=== PATIENT | male | born 1950 | race Caucasian/White ===

== ENCOUNTER 2018-03-16 12:18 | Day surgery (SDC) | payer MEDICARE, OTHER ==
[~2018-03-16] VITALS: Ht 175.3 cm; Wt 76.7 kg
[~2018-03-16 12:18] MED LIST: DEXTROAMPHETAMI10 M1 PO; DIVALPROEX SOD250 M1 PO; LISINOPRIL40 MG PO; OMEPRAZOLE20 MG PO; PERCOCET 7.5-31 EACH PO; ZOFRAN ODT8 MG PO
[2018-03-16] MEDS ORDERED: BIOTIN5000 MC1 SL (12:55)
[2018-03-16] MEDS ORDERED: CELEBREX200 MG PO (12:56)
[2018-03-16] MEDS ORDERED: MINOCIN100 MG PO (12:56)
[2018-03-16] MEDS ORDERED: CLONAZEPAM1 MG PO (12:56)
[2018-03-16] MEDS ORDERED: OSTEO BI-FLEX1 EAC2 PO (12:57)
[2018-03-16] MEDS ORDERED: PAPAYA1 EAC1 PO (12:57)
[2018-03-16] MEDS ORDERED: DAILY MULTIPLE1 EACH PO (12:57)
[2018-03-16] MEDS ORDERED: VITAMIN D-32000 UNIT PO (12:59)
[2018-03-16] MEDS ORDERED: VITAMIN B-12500 MC2 PO (12:59)
--- NOTE | 2018-03-16 14:00 | NUR ---
03/16/18 1400 Rebecca Serrano 1348 PATIENT ARRIVES TO PACU AWAKE, BUT SLIGHTLY DROWSY. RESP EVEN AND UNLABORED. NC AT 3 LITERS. DENIES PAIN OR NAUSEA. 1350 OXYGEN TURNED OFF. 1355 PATIENT SITTING UP DRINKING OJ, PASSING GAS.
--- NOTE | 2018-03-18 12:42 | OR ---
[facility] [address] [place], [place] [address] Signed DATE OF OPERATION: 03/16/2018 SURGEON: Johnathan Muhammad MD PREOPERATIVE DIAGNOSES: 1. History of villoglandular polyp of the right colon in 2016. 2. Diarrhea, possibly postcholecystectomy related diarrhea. POSTOPERATIVE DIAGNOSES: Polyps x2 (right colon and splenic flexure). PROCEDURE: Total colonoscopy to cecum with cold morcellation polypectomy x2. ANESTHESIA: Intravenous sedation, fentanyl 100 mcg and Versed 6 mg. INDICATION: A 67-year-old white man who is a patient of Dr. Horne and known to me from the past having undergone cholecystectomy in 2016 as well as colonoscopy at that time showing a villoglandular polyp of the right colon. Surveillance colonoscopy was recommended in addition to the fact he has significant diarrhea from time to time. It is my clinical impression that his diarrhea is probably related to cholecystectomy. A plan for use of Questran is anticipated following this evaluation. The risks of bleeding, infection, and perforation related to colonoscopy were reviewed in detail. He understands and wished to proceed. FINDINGS: The prep was excellent. Complete colonoscopy was undertaken to the cecum. There was no evidence of colitis. He had two polyps, both of them small, one in the mid ascending colon and the other at the splenic flexure. Both were excised completely. DESCRIPTION OF PROCEDURE: The patient was brought to the endoscopy suite and placed in the lateral decubitus position, given intravenous sedation to the point of slurred speech and nystagmus. Digital rectal examination was normal. The Olympus video colonoscope was passed in the rectum and manipulated throughout the colon ultimately intubating the cecum itself. The ileocecal valve and appendiceal orifice were normal. The scope was withdrawn a short distance and a sessile polyp looking primarily hyperplastic was noted. This was excised completely with cold morcellation technique. In this area, but not directly at this Electronically Signed By: JOHNATHAN MUHAMMAD MD 03/18/18 1242 PATIENT NAME: MAGDY HOWE OPERATIVE REPORT DATE OF : 50 REPORT #: [id number] PHYSICIAN: JOHNATHAN MUHAMMAD MD PCP: BELEN HORNE MD REPORT IS CONFIDENTIAL AND NOT TO BE RELEASED WITHOUT AUTHORIZATION [facility] [address] [place], [place] [address] Signed area was a faint hint of endoscopic tattoo dye though I cannot be for certain that it was there. Further withdrawal of the scope was undertaken and in the region of the splenic flexure and the left colon, another small polyp was noted. This was excised completely with cold morcellation technique as well. Further withdrawal of the scope showed no sign of diverticulosis, colitis, cancer, or other problem. Retroflexed view was normal as well. The scope was removed. The patient was taken to the recovery room in good condition. CONCLUDING DIAGNOSIS: Polyps x2. PLAN: We will see what the pathology report shows. Given the two polyps, would recommend repeat colonoscopy in 3 years or sooner if clinically indicated. He will initiate his Questran for presumed postcholecystectomy diarrhea (choleretic diarrhea). He will let me know if there are problems in the meantime. Johnathan Muhammad MD JM/MODL /[id number] cc: Belen Horne MD Copies: BELEN HORNE MD ~ Electronically Signed By: JOHNATHAN MUHAMMAD MD 03/18/18 1242 PATIENT NAME: MAGDY HOWE OPERATIVE REPORT DATE OF : 50 REPORT #: [id number] PHYSICIAN: JOHNATHAN MUHAMMAD MD PCP: BELEN HORNE MD REPORT IS CONFIDENTIAL AND NOT TO BE RELEASED WITHOUT AUTHORIZATION
== END 2018-03-16 14:20 | disposition home or self-care (01) ==
LOC: OPS 12:18 → DS 13:00 → OPS 14:20
PROVIDERS: Surgery
PROC: 0DBL8ZX Excision of Transverse Colon, Via Natural or Artificial Opening Endoscopic, Diagnostic (ICD-10-PCS; 2018-03-16)
PROC: 0DBF8ZX Excision of Right Large Intestine, Via Natural or Artificial Opening Endoscopic, Diagnostic (ICD-10-PCS; principal; 2018-03-16 13:00)
DX: D12.3 Benign neoplasm of transverse colon (principal); K63.5 Polyp of colon; I10 Essential (primary) hypertension; G40.909 Epilepsy, unspecified, not intractable, without status epilepticus; K91.5 Postcholecystectomy syndrome; Z86.010 Personal history of colon polyps; Z98.890 Other specified postprocedural states
CPT/HCPCS: 88305; 99153; G0500; J2250; J3010; J7120

== ENCOUNTER 2021-05-07 07:00 | Day surgery (SDC) | payer MEDICARE, OTHER ==
[~2021-05-07] VITALS: Ht 175.3 cm; Wt 74.5 kg
[~2021-05-07 07:00] MED LIST changes: +BIOTIN5000 MC1 SL; +CELEBREX200 MG PO; +CLONAZEPAM1 MG PO; +DAILY MULTIPLE1 EACH PO; +MELOXICAM15 MG PO; +MINOCIN100 MG PO; +OSTEO BI-FLEX1 EAC2 PO; +PAPAYA1 EAC1 PO; +VITAMIN B-12500 MC2 PO; +VITAMIN B-12500 MCG PO; +VITAMIN D-32000 UNIT PO
--- NOTE | 2021-05-07 08:22 | NUR ---
05/07/21 0822 Olga Wade 0817- PT TO PACU IN SUPINE POSITION. EYES OPEN AND TALKING WITH STAFF. PT REPORTS CRAMPINESS IN LOWER ABDOMEN. PT EDUCATED AND ENCOURAGE DTO PASS GAS. PT REPOSITIONS SELF TO LL POSITION AND PASSES GAS. BREATHING EASY AND UNLABORED. SPO2 >95% ON 4 L O2 VIA NC. O2 TITRATED DOWN TO 2 L O2 VIA NC.
--- NOTE | 2021-05-11 18:29 | OR ---
[facility] [address] [place], [place] [address] Signed DATE OF OPERATION: 05/07/2021 SURGEON: Johnathan Muhammad MD PREOPERATIVE DIAGNOSIS: History of tubular adenomas, splenic flexure, 2018. POSTOPERATIVE DIAGNOSIS: Normal colon to cecum. PROCEDURE: Total colonoscopy to cecum. ANESTHESIA: Intravenous sedation with fentanyl 150 mcg and Versed 7 mg. INDICATION: This 70-year-old white man is a patient of Dr. Belen Horne. He has undergone colonoscopy in 2018, which showed a tubular adenoma at the splenic flexure. He is recommended for surveillance colonoscopy on that basis. He has no blood per rectum, diarrhea, or constipation. He did have diarrhea related to cholecystectomy, which was markedly improved with colestipol administration. He is admitted at this time to undergo surveillance colonoscopy and understand the risks of bleeding, infection, and perforation. FINDINGS: The prep was excellent. Complete colonoscopy was undertaken to the cecum without question. There was no evidence of polyps, diverticular formation, colitis, or cancer. DESCRIPTION OF PROCEDURE: The patient was brought to the endoscopy suite and placed in lateral decubitus position, given intravenous sedation to the point of slurred speech and nystagmus. Digital rectal examination was normal. An Olympus video colonoscope was passed in the rectum and manipulated throughout the colon ultimately intubating the cecum itself. The patient's baseline heart rate was about 50-55 and his heart rate did go to as low as 42 with manipulation of the scope, but he did not require any agents to increase his heart rate and he was never hypotensive during the course of the procedure. Electronically Signed By: JOHNATHAN MUHAMMAD MD 05/11/21 1829 PATIENT NAME: MAGDY HOWE OPERATIVE REPORT DATE OF : 50 REPORT #: [id number] PHYSICIAN: JOHNATHAN MUHAMMAD MD PCP: BELEN HORNE MD REPORT IS CONFIDENTIAL AND NOT TO BE RELEASED WITHOUT AUTHORIZATION [facility] [address] [place] [id number] Signed Upon intubation of the cecum, the scope was withdrawn and examination throughout showed no sign of polyps or other abnormalities. Retroflexed view was normal as well. The scope was removed and the patient was taken to the recovery room in good condition. CONCLUDING DIAGNOSIS: Normal colon to cecum. PLAN: Recommend a repeat colonoscopy in 7-10 years, sooner if symptoms should occur. He will return to the ongoing care of Dr. Belen Horne otherwise. MD JOHN Michaels/NEDA /[id number] cc: Belen Horne MD Copies: BELEN HORNE MD ~ Electronically Signed By: JOHNATHAN MUHAMMAD MD 05/11/21 1829 PATIENT NAME: MAGDY HOWE OPERATIVE REPORT DATE OF : 50 REPORT #: [id number] PHYSICIAN: JOHNATHAN MUHAMMAD MD PCP: BELEN HORNE MD REPORT IS CONFIDENTIAL AND NOT TO BE RELEASED WITHOUT AUTHORIZATION
== END 2021-05-07 08:42 | disposition home or self-care (01) ==
LOC: DS 07:00 → OPS 07:00 → DS 14:00
PROVIDERS: ATTEND Surgery
PROC: 0DJD8ZZ Inspection of Lower Intestinal Tract, Via Natural or Artificial Opening Endoscopic (ICD-10-PCS; principal; 2021-05-07 08:30)
DX: Z12.11 Encounter for screening for malignant neoplasm of colon (principal); Z87.19 Personal history of other diseases of the digestive system; I10 Essential (primary) hypertension; Z98.1 Arthrodesis status; G40.909 Epilepsy, unspecified, not intractable, without status epilepticus; K91.5 Postcholecystectomy syndrome; Z86.010 Personal history of colon polyps
CPT/HCPCS: 99153; G0500; J0461; J2250; J7121

== ENCOUNTER 2025-03-16 11:51 | Emergency (ER) | payer OTHER, MEDICARE ==
[~2025-03-16] VITALS: Ht 175.3 cm; Wt 79.0 kg
[2025-03-16] MEDS ORDERED: AMOX TR-K CLV1 EAC1 PO (12:21)
[2025-03-16] MEDS ORDERED: AMOXICILLIN/CLAVULANATE K 875 MG TAB PO ONE (12:30)
[2025-03-16] MEDS ORDERED: METOPROLOL SUCC25 MG PO (12:55)
[2025-03-16] MEDS ORDERED: ELIQUIS5 MG PO (12:56)
[2025-03-16] MEDS ORDERED: BUPROPION HCL100 M1 PO (12:57)
[2025-03-16] MEDS ORDERED: LOTEPREDNOL ETA10 ML OP (12:59)
[2025-03-16 13:46] VITALS: BP 127/66
== END 2025-03-16 14:21 | disposition home or self-care (01) ==
LOC: ED 11:51
DX: S61.253A Open bite of left middle finger without damage to nail, initial encounter (principal); I48.91 Unspecified atrial fibrillation; I10 Essential (primary) hypertension; Z79.899 Other long term (current) drug therapy; Z79.01 Long term (current) use of anticoagulants; W54.0XXA Bitten by dog, initial encounter
CPT/HCPCS: 73130; 99283

== ENCOUNTER 2025-07-04 21:59 | Emergency (ER) | payer MEDICARE, OTHER ==
[~2025-07-04] VITALS: Ht 175.3 cm; Wt 74.0 kg
[~2025-07-04 21:59] MED LIST changes: +AMOX TR-K CLV1 EAC1 PO; +BUPROPION HCL100 M1 PO; +ELIQUIS5 MG PO; +LOTEPREDNOL ETA10 ML OP; +METOPROLOL SUCC25 MG PO
[2025-07-04 23:00] LABS: BLOOD/HGB, URINE NEGATIVE (Negative); KETONE, URINE TRACE (Negative); LEUK ESTERASE, URINE NEGATIVE (negative); NITRITE, URINE NEGATIVE (negative)
[2025-07-04 23:08] LABS: BASOPHILS 0.5 % (0.2-1.2); EOSINOPHILS 0.1 % (0.8-7.0); LYMPHOCYTES 18.5 % (21.8-53.1); MCH 31.8 PG (25.7-32.2); MCHC 32.5 g/dL (32.3-36.5); MCV 97.8 fL (79.0-92.2); MONOCYTES 11.4 % (5.3-12.2); NEUTROPHILS 69.3 % (34.0-67.9); RBC 4.15 M/uL (4.63-6.08)
[2025-07-04 23:15] LABS: AMPHETAMINES, URINE NEGATIVE (NEGATIVE); BARBITURATES, URINE NEGATIVE (NEGATIVE); BENZODIAZEPINE, URINE NEGATIVE (NEGATIVE); CANNABINOID, URINE POSITIVE (NEGATIVE); COCAINE, URINE NEGATIVE (NEGATIVE); ECSTASY, URINE POSITIVE (NEGATIVE); FENTANYL, URINE NEGATIVE (NEGATIVE); METHADONE, URINE NEGATIVE (NEGATIVE); OPIATES, URINE NEGATIVE (NEGATIVE); OXYCODONE, URINE NEGATIVE (NEGATIVE); PHENCYCLIDINE, URINE NEGATIVE (NEGATIVE)
[2025-07-04] MEDS ORDERED: OLANZapine 10 MG TAB PO ONE (23:15)
[2025-07-04 23:36] LABS: ALCOHOL, MEDICAL <3 ng/dL (<3); ALT (SGPT) 30 U/L (14-59); AST (SGOT) 38 U/L (15-37); GLOMERULAR FILTRATION RATE,EST 62 mL/min (>60); PROTEIN, TOTAL 7.2 g/dL (6.4-8.2); TSH, 3RD GENERATION 1.160 uIU/mL (0.358-3.740); UREA NITROGEN 22 mg/dL (7-18)
[2025-07-05] MEDS ORDERED: OLANZapine 10 MG TABDIS PO ONE (07:45)
[2025-07-05] MEDS ORDERED: QUETIAPINE FUMA25 MG PO (08:05)
[2025-07-05] MEDS ORDERED: OLANZAPINE ODT10 MG PO (10:38)
[2025-07-05 10:51] VITALS: BP 150/80
== END 2025-07-05 10:52 | disposition home or self-care (01) ==
LOC: ED 21:59
PROVIDERS: Internal Medicine
DX: F31.89 Other bipolar disorder (principal); I10 Essential (primary) hypertension; I48.91 Unspecified atrial fibrillation; D53.9 Nutritional anemia, unspecified; Z79.01 Long term (current) use of anticoagulants; Z79.899 Other long term (current) drug therapy
CPT/HCPCS: 36415; 80053; 80307; 81003; 84443; 85025; 99284; A9270; G0480